=== PATIENT | female | born 1965 | race American Indian/Alaskan Native ===

== ENCOUNTER 2021-05-21 23:17 | Emergency (ER) | payer OTHER ==
[2021-05-22 00:42] VITALS: BP 226/122
[2021-05-22] MEDS ORDERED: ACETAMINOPHEN 500 MG TAB PO ONE (01:19)
--- NOTE | 2021-05-22 02:04 | Cat Scan Report ---
CT HEAD WITHOUT CONTRAST INDICATION / CLINICAL INFORMATION: Pain - FALL. TECHNIQUE: CT of the head was performed without administration of intravenous contrast. All CT scans at this location are performed using CT dose reduction for ALARA by means of automated exposure contr ol. COMPARISON: None available. FINDINGS: CEREBRAL PARENCHYMA: No significant abnormality. No acute territorial infarct. HEMORRHAGE: None. EXTRA-AXIAL SPACES: Normal in size and morphology for the patient's age. VENTRICULAR SYSTEM: Normal in size and morphology for the patient's age. MIDLINE SHIFT / HERNIATION: None. CEREBELLUM / BRAINSTEM: No significant abnormality. ORBITS: Normal as visualized. SOFT TISSUES: No significant abnormality. SKULL: No significant abnormality. PARANASAL SINUSES / MASTOID AIR CELLS: Normal as visualized. ADDITIONAL FINDINGS: None. IMPRESSION: 1. No acute intracranial abnormality. Signer Name: Ramon Peters II, MD Signed: 05/22/2021 1:59 AM Workstation Name: [id number]
--- NOTE | 2021-05-22 02:34 | Emergency Department Report ---
ED Head Trauma HPI - General Chief complaint: Head Injury Stated complaint: HEAD/HAND INJURY Source: patient Mode of arrival: Ambulatory Limitations: No Limitations - History of Present Illness Initial comments: Patient is a 56-year-old -[place] female with a history of morbid obesity, hypertension and jer-iqchjie-htbdooure diabetes who presents to the ED with complaint of acute onset persistent headache and left parietal scalp pain with mild swelling after she tripped on the floor and hit her head against a wooden cabinet about 3 hours ago. Patient states that the pain has been persistent since the accident occurred. Patient states that she is not on any blood thinners. Patient denies loss of consciousness, nausea and vomiting, dizziness, syncope, change in vision, neck pain, chest pain, shortness of breath, back pain, numbness and tingling or weakness of upper and lower extremities bilaterally. MD Complaint: head injury, head pain, fall -: Sudden, hour(s) (3) Arrival Conditions: Negative: C-spine immobilization present, spinal board immobilization present Mechanism of Injury: mechanical fall Location: parietal (left) Loss of Consciousness: no Previous Trauma to this Area: No Place: home Radiation: none Severity: moderate Severity scale (0 -10): 4 Quality: aching Consistency: constant Provoking factors: none known Other Injuries: none Associated Symptoms: denies other symptoms. denies: confusion, amnesia, repetitive questioning, vision changes, nausea, vomiting, vertigo, syncope, numbness, weakness, tingling, neck pain - Related Data Previous Rx's Medication Instructions Recorded Last Taken Type Ibuprofen [Motrin] 800 mg PO Q8HR PRN #20 tablet 05/22/21 Unknown Rx Allergies/Adverse reactions: Allergies Allergy/AdvReac Type Severity Reaction Status Date / Time diphenhydramine Allergy Unknown Verified 05/22/21 00:45 [From Triaminic Allergy] ED Review of Systems ROS: Stated complaint: HEAD/HAND INJURY Other details as noted in HPI Constitutional: denies: chills, fever Eyes: denies: eye pain, eye discharge, vision change ENT: other (Localized left parietal scalp pain). denies: ear pain, throat pain Respiratory: denies: cough, shortness of breath, wheezing Cardiovascular: denies: chest pain, palpitations Endocrine: no symptoms reported Gastrointestinal: denies: abdominal pain, nausea, diarrhea Genitourinary: denies: urgency, dysuria, discharge Musculoskeletal: denies: back pain, joint swelling, arthralgia Skin: denies: rash, lesions Neurological: headache. denies: weakness, paresthesias Psychiatric: denies: anxiety, depression Hematological/Lymphatic: denies: easy bleeding, easy bruising ED Past Medical Hx - Past Medical History Previous Medical History?: Yes Hx Hypertension: Yes Hx Diabetes: Yes Additional medical history: Morbid obesity - Medications Home Medications: Home Medications Medication Instructions Recorded Confirmed Last Taken Type Ibuprofen [Motrin] 800 mg PO Q8HR PRN #20 tablet 05/22/21 Unknown Rx ED Physical Exam - General Limitations: No Limitations General appearance: alert, in no apparent distress - Head Head exam: Present: other (Palpable localized left parietal scalp tenderness) - Eye Eye exam: Present: normal appearance, PERRL, EOMI Pupils: Present: normal accommodation - ENT ENT exam: Present: normal exam, normal orophraynx, mucous membranes moist, TM's normal bilaterally, normal external ear exam - Neck Neck exam: Present: normal inspection, full ROM. Absent: tenderness - Respiratory Respiratory exam: Present: normal lung sounds bilaterally. Absent: respiratory distress, wheezes, rales, rhonchi, stridor, chest wall tenderness, accessory muscle use, decreased breath sounds, prolonged expiratory - Cardiovascular Cardiovascular Exam: Present: regular rate, normal rhythm, normal heart sounds. Absent: systolic murmur, diastolic murmur, rubs, gallop - GI/Abdominal GI/Abdominal exam: Present: soft, normal bowel sounds. Absent: tenderness, guarding, rebound, hyperactive bowel sounds, hypoactive bowel sounds, organomegaly - Extremities Exam Extremities exam: Present: normal inspection, full ROM, normal capillary refill - Back Exam Back exam: Present: normal inspection, full ROM. Absent: tenderness, CVA tenderness (R), CVA tenderness (L), muscle spasm, paraspinal tenderness, vertebral tenderness - Neurological Exam Neurological exam: Present: alert, oriented X3, CN II-XII intact, normal gait, reflexes normal - Psychiatric Psychiatric exam: Present: normal affect, normal mood - Skin Skin exam: Present: warm, dry, intact, normal color. Absent: rash ED Course Vital Signs 05/22/21 05/22/21 00:41 01:26 Temperature 98.1 F Respiratory 18 14 Rate Blood Pressure 226/122 - Radiology Data Radiology results: report reviewed, image reviewed [facility] [address] [place] [address] Cat Scan Report Signed Patient: BOZENA HOFFMAN MR#: [id number] 8 : 1965 Acct:[id number] Age/Sex: 56 / F ADM Date: 05/21/21 Loc: ED Attending Dr: Ordering Physician: OSIRIS GARRIDO Date of Service: 05/22/21 Procedure(s): CT head/brain wo con Accession Number(s): [id number] cc: OSIRIS GARRIDO CT HEAD WITHOUT CONTRAST INDICATION / CLINICAL INFORMATION: Pain - FALL. TECHNIQUE: CT of the head was performed without administration of intravenous contrast. All CT scans at this location are performed using CT dose reduction for ALARA by means of automated exposure control. COMPARISON: None available. FINDINGS: CEREBRAL PARENCHYMA: No significant abnormality. No acute territorial infarct. HEMORRHAGE: None. EXTRA-AXIAL SPACES: Normal in size and morphology for the patient's age. VENTRICULAR SYSTEM: Normal in size and morphology for the patient's age. MIDLINE SHIFT / HERNIATION: None. CEREBELLUM / BRAINSTEM: No significant abnormality. ORBITS: Normal as visualized. SOFT TISSUES: No significant abnormality. SKULL: No significant abnormality. PARANASAL SINUSES / MASTOID AIR CELLS: Normal as visualized. ADDITIONAL FINDINGS: None. IMPRESSION: 1. No acute intracranial abnormality. Signer Name: Kun Peters II, MD Signed: 05/22/2021 1:59 AM Workstation Name: [id number] Transcribed By: JUDI Dictated By: KUN PETERS II, MD Electronically Authenticated By: KUN PETERS II, MD Signed Date/Time: 05/22/21158 DD/ 6 TD/TT: - Medical Decision Making This is a 56-year-old -[place] female with a history of morbid obesity, hypertension and kmq-pgxclft-yobgjojbr diabetes who presents to the ED with complaint of acute onset persistent headache and left parietal scalp pain with mild swelling after she tripped on the floor and hit her head against a wooden cabinet about 3 hours ago. Patient states that the pain has been persistent since the accident occurred. Patient states that she is not on any blood thinners. In the ED, patient is alert and oriented x3 and is not in any distress. Patient was treated for pain in the ED. Head CT scan without contrast showed no acute intracranial abnormalities or hemorrhage. On reevaluation, patient felt better and was discharged home on pain medications and advised to follow-up with her primary care physician in 3 to 5 days for reevaluation or return to the ED immediately if symptoms get worse. - Differential Diagnosis Scalp contusion; head injury; intracranial bleed - Core Measures AMI Core Measures Followed: No Measure Exclusions: not indicated - NEXUS Criteria Focal neurological deficit present: No Midline spinal tenderness present: No Altered level of consciousness: No Intoxication present: No Distracting injury present: No NEXUS results: C-Spine can be cleared clinically by these results. Imaging is not required. Critical care attestation.: If time is entered above; I have spent that time in minutes in the direct care of this critically ill patient, excluding procedure time. ED Disposition Clinical Impression: Contusion of scalp Qualifiers: Encounter type: initial encounter Qualified Code(s): S00.03XA - Contusion of scalp, initial encounter Head injury without concussion or intracranial hemorrhage Qualifiers: Encounter type: initial encounter Qualified Code(s): S09.90XA - Unspecified injury of head, initial encounter Disposition: 01 HOME / SELF CARE / HOMELESS Is pt being admited?: No Does the pt Need Aspirin: No Condition: Stable Instructions: Facial or Scalp Contusion, Head Injury, Adult Additional Instructions: The head CT scan without contrast showed no acute intracranial abnormalities or hemorrhage. Therefore take medication as needed for pain, drink plenty of fluids and follow-up with your primary care physician in 3 to 5 days for reevaluation. Return to the ED immediately if your symptoms get worse Prescriptions: Ibuprofen [Motrin] 800 mg PO Q8HR PRN #20 tablet PRN Reason: Pain , Severe (7-10) Referrals: [facility] [Provider Group] - 3-5 Days Time of Disposition: 02:35 Print Language: ECUADORE[place]
== END 2021-05-22 03:51 | disposition home or self-care (01) ==
LOC: ED 23:17
DX: S09.90XA Unspecified injury of head, initial encounter (principal); S00.03XA Contusion of scalp, initial encounter; I10 Essential (primary) hypertension; E11.9 Type 2 diabetes mellitus without complications; E66.01 Morbid (severe) obesity due to excess calories; Z88.8 Allergy status to other drugs, medicaments and biological substances; W01.198A Fall on same level from slipping, tripping and stumbling with subsequent striking against other object, initial encounter; Y93.89 Activity, other specified; Y92.89 Other specified places as the place of occurrence of the external cause; Y99.8 Other external cause status
CPT/HCPCS: 70450; 99283